=== PATIENT | male | born 1980 | race Caucasian/White ===

== ENCOUNTER 2020-07-17 15:37 | Outpatient (REF) | payer BC, SELFPAY | END 2020-07-17 15:38 | disposition home or self-care (01) | LOC: HO.LAB 15:37 | PROVIDERS: Visit Provider Internal Medicine | DX: Z20.828 Contact with and (suspected) exposure to other viral communicable diseases (principal) | CPT/HCPCS: C9803; U0003 ==

== ENCOUNTER → 2020-11-25 09:15 | Outpatient (BNVA) | payer OTHER, SELFPAY | PROVIDERS: Visit Provider Physician Assistant Medical | DX: S66.911A Strain of unspecified muscle, fascia and tendon at wrist and hand level, right hand, initial encounter (principal); X58.XXXA Exposure to other specified factors, initial encounter; M65.4 Radial styloid tenosynovitis [de Quervain] | CPT/HCPCS: 99203 ==

== ENCOUNTER → 2021-02-16 09:46 | Outpatient (BNVA) | payer OTHER, SELFPAY | PROVIDERS: Visit Provider Physician Assistant | DX: S43.51XD Sprain of right acromioclavicular joint, subsequent encounter (principal); X58.XXXD Exposure to other specified factors, subsequent encounter | CPT/HCPCS: 73030; 99203 ==

== ENCOUNTER → 2021-02-25 09:06 | Outpatient (BNVA) | payer OTHER, SELFPAY | PROVIDERS: Visit Provider Physician Assistant | DX: S43.51XD Sprain of right acromioclavicular joint, subsequent encounter (principal); X58.XXXD Exposure to other specified factors, subsequent encounter | CPT/HCPCS: 99213 ==

== ENCOUNTER 2021-02-26 09:06 | Outpatient (REF) | payer OTHER, SELFPAY ==
--- NOTE | ~2021-02-26 | MR_ITS ---
EXAMINATION: MR SHOULDER WITHOUT CONTRAST, RIGHT CLINICAL INFORMATION: Shoulder pain and weakness. Decreased range of motion. Question fracture inferior rim glenoid. COMPARISON: Radiographs of shoulder from 02/16/2021 TECHNIQUE: MRI of the shoulder without contrast was performed on a high-field 1.5 Loren scanner. FINDINGS: ROTATOR CUFF: There is mild tendinopathy of the conjoined supraspinatus-infraspinatus tendon as manifest by thickening and signal heterogeneity of the conjoined tendon. There are foci of slightly increased signal within the supraspinatus tendon from mucoid degeneration and/or minimal interstitial tearing. Also, there appears to be a small rim-rent tear at the articular surface of the supraspinatus insertion where it inserts onto the superior facet of the greater tuberosity. This small tear measures 0.4 cm AP, 0.5 cm long and affects less than one-third of the tendon thickness. There are no large rotator cuff defects. No full-thickness tendon tear. The subscapularis and teres minor tendons are unremarkable. The rotator cuff muscles are normal. No significant atrophy or fatty replacement of muscles. BICEPS: The long head of the biceps tendon is normal. It is appropriately positioned within the intertubercular sulcus of the humerus. The intra-articular segment of the tendon, and biceps-labral junction, are intact. CORACOACROMIAL ARCH: The acromioclavicular joint is intact. There are no osteophytes projecting from the undersurface of the acromioclavicular joint. No os acromiale or acromial enthesophyte. There is anterior downsloping and type 2 curvature of the acromion process. No evidence of subacromial-subdeltoid bursitis. LABRUM/CAPSULE: There is abnormal T2 signal hyperintensity from tearing at the base of the posterosuperior labrum (axial image 06/09, series 2). A paralabral cyst of the posteroinferior glenoid measures 0.2 cm AP. This finding suggests high likelihood of fraying or tearing of the posteroinferior labrum. There is linear, intermediate signal within the anterior labrum from a possible tear (axial image , series 2). The glenohumeral ligament complex is unremarkable. The quadrilateral space, suprascapular notch and spinoglenoid notch have a normal appearance. GLENOHUMERAL JOINT/MARROW: The humeral head is well positioned over the intact glenoid. No humeral bone bruise, fracture or avascular necrosis. There is irregular thinning of articular cartilage of the glenohumeral joint. The chondral loss is worst (moderate-to severe) along the posterior aspect of the glenoid. There are associated subchondral cystic changes and osteophytes at the glenohumeral joint. Small amount of fluid is present within the joint. No loose osteochondral body. Note that there is no fracture of the inferior glenoid rim. Instead, there is an osteophyte of the inferior glenoid. MR/MR shoulder RT wo con IMPRESSION: * Mild tendinopathy of the supraspinatus and infraspinatus. * Also, there appears to be a small articular surface rim-rent tear at the insertion of the supraspinatus tendon. * Long head of the biceps tendon is normal. * The labrum is torn at the posterosuperior glenoid. Also, is likely fraying or tearing of the labrum at the posteroinferior glenoid with a small paralabral cyst. * Moderate osteoarthritis of the glenohumeral joint.
== END 2021-02-26 09:07 | disposition home or self-care (01) ==
LOC: HO.MRI 09:06
PROVIDERS: Visit Provider Internal Medicine
DX: M25.811 Other specified joint disorders, right shoulder (principal); M25.411 Effusion, right shoulder
CPT/HCPCS: 73221

== ENCOUNTER → 2021-03-10 09:04 | Outpatient (BNVA) | payer OTHER, SELFPAY | PROVIDERS: Visit Provider Physician Assistant | DX: S43.401D Unspecified sprain of right shoulder joint, subsequent encounter (principal); S46.011D Strain of muscle(s) and tendon(s) of the rotator cuff of right shoulder, subsequent encounter; X58.XXXD Exposure to other specified factors, subsequent encounter | CPT/HCPCS: 99213 ==

== ENCOUNTER → 2024-07-20 08:15 | Outpatient (BNVA) | payer OTHER, SELFPAY | PROVIDERS: Visit Provider Internal Medicine | DX: L23.7 Allergic contact dermatitis due to plants, except food (principal) | CPT/HCPCS: 99202 ==